=== PATIENT | male | born 1980 | race African-American/Black ===

== ENCOUNTER 2020-07-13 17:48 | Emergency (ER) | payer OTHER, SELFPAY ==
[2020-07-13 18:06] VITALS: BP 148/82; PULSE 98; RESP 20; TEMP 37; O2SAT 100
--- NOTE | 2020-07-13 18:36 | ED.SKABFB ---
HPI - Skin/Abscess/Foreign Bdy General Chief complaint: Skin/Abscess/Foreign Body Stated complaint: Skin complaint Time Seen by Provider: 07/13/20 17:51 Source: patient Mode of arrival: ambulatory Limitations: no limitations History of Present Illness HPI narrative: 39-year-old male presents to [facility] with complaints of raised erythematous itchy painful area to his left chest wall for the past 3 days. Patient reports that he noticed the area after he slept with his bedroom window opened. Patient states that the area was itchy the first two days and now is mildly painful. Patient denies fever, bodies, chills, nausea, vomiting or diarrhea. Patient states that the area is now hard to touch MD complaint: rash and insect bite/sting Onset (ago): day(s) (3) Exacerbating factors: none Context: none Associated symptoms: denies other symptoms Treatments prior to arrival: none Related Data Allergies Allergy/AdvReac Type Severity Reaction Status Date / Time No Known Allergies Allergy Verified 07/13/20 18:22 Review of Systems Constitutional: Constitutional: Denies chills, Denies fever(s) and Denies weakness Cardiovascular: Cardiovascular: Denies chest pain, Denies rapid heart rate, Denies radiating jaw, neck or arm pain and Denies slow heart rate Respiratory: Respiratory: Denies chest congestion, Denies cough and Denies wheezing Gastrointestinal: Gastrointestinal: Denies abdominal pain, Denies constipation, Denies diarrhea, Denies nausea and Denies vomiting Integumentary/Breasts: Skin/Breast: Reports pruritus and Reports erythema Endocrine: Endocrine: Denies fatigue PMFSH Family History Family History (Updated 07/13/20 @ 18:41 by Jennifer Gee APRN) Mother Hypertension Asthma Social History Social History (Updated 07/13/20 @ 18:41 by Jennifer Gee APRN) Smoking status: Never smoker Comments At time of signature, I agree with nursing past medical, surgical, social and family history. There is no relevant family history pertinent to the presenting complaint. Exam Const: General: healthy appearing, no acute distress and alert Orientation/consciousness: patient oriented x3 Neck: Neck: normal visual inspection Chest: Other: There is a 5 cm raised area of erythema and skin appears to be scaly. The area is hard to touch. There is no fluctuation or induration noted. There is no streaking erythema, necrotic tissue, bruising or bleeding noted. Area likely represents an insect bite. Resp: Effort & Inspection: normal respiratory effort, not labored and not tachypneic Auscultation: clear to auscultation bilaterally Cardio: Rate: regular rate and not bradycardic Rhythm: regular rhythm Heart sounds: no murmurs Skin: General skin exam: normal color Rashes: no rashes Wounds: no wounds Neuro: General: patient oriented x3, moves all extremities, no meningeal signs and no focal motor deficits Extrem: General: normal to inspection Psych: Appearance: grossly normal Mental Status: mental status grossly normal Affect: normal affect Attitude: cooperative Thought content: Yes Normal thought content present Course Vital Signs Vital signs: Vital Signs Temperature 37.0 C 07/13/20 18:06 Pulse Rate 98 07/13/20 18:06 Respiratory Rate 20 07/13/20 18:06 Blood Pressure 148/82 H 07/13/20 18:06 Pulse Oximetry 100 07/13/20 18:06 Temperature 37.0 C 07/13/20 18:06 Pulse Rate 98 07/13/20 18:06 Respiratory Rate 20 07/13/20 18:06 Blood Pressure 148/82 H 07/13/20 18:06 Pulse Oximetry 100 07/13/20 18:06 MDM - Skin/Abscess/Foreign Bdy MDM Narrative Medical decision making narrative: Patient agrees to take medications as prescribed. Worrisome symptoms discussed with patient and he agrees to monitor closely. Patient agrees to proceed to the emergency room if symptoms worsen. Differential Diagnosis Differential diagnosis: Likely abscess of skin or subcutaneous tissue, viral exanthem and ur
== END 2020-07-13 18:48 | disposition home or self-care (01) ==
PROVIDERS: Emergency Provider Nurse Practitioner Family
DX: S20.362A Insect bite (nonvenomous) of left front wall of thorax, initial encounter (principal); W57.XXXA Bitten or stung by nonvenomous insect and other nonvenomous arthropods, initial encounter
CPT/HCPCS: 99213; G0463